=== PATIENT | male | born 1975 | race American Indian/Alaskan Native ===

== ENCOUNTER 2016-06-18 14:17 | Emergency (ER) | payer SELFPAY ==
[2016-06-18 15:09] VITALS: TEMP 99; O2SAT 98; BMI 32.6
[2016-06-18] MEDS ORDERED: Sodium Chloride 0.9% 1,000 ML IV STA (15:13)
--- NOTE | 2016-06-18 15:31 | ED PDOC ---
Arrival/HPI - General Chief Complaint: Abdominal Pain Time Seen by Provider: 06/18/16 14:51 Historian: Patient - History of Present Illness Narrative History of Present Illness (Text): 06/18/16 14:51 A 40 year old male, whose past medical history includes HIV (last CD4 count is 700 and Viral load is undetected), and diverticulitis, presents to the emergency department complaining of left lower quadrant abdominal pain since last night. Patient notes associated no fever, has nausea, and vomiting but denies any urinary changes, back pain or other complaints at this time. PMD: None 06/18/16 20:39 Time/Duration: Other (12-18 hours) Symptom Onset: Sudden Symptom Course: Unchanged Quality: Other Activities at Onset: Rest Context: Home Past Medical History - Provider Review Nursing Documentation Reviewed: Yes - Travel History If Yes, travel location?: [place] - Cardiac Hx Cardiac Disorders: No - Pulmonary Hx Respiratory Disorders: No - Neurological Hx Neurological Disorder: No - HEENT Hx HEENT Disorder: No - Renal Hx Renal Disorder: No - Endocrine/Metabolic Hx Endocrine Disorders: No - Hematological/Oncological Hx Blood Disorders: Yes - Integumentary Hx Dermatological Disorder: No - Musculoskeletal/Rheumatological Hx Musculoskeletal Disorders: No - Gastrointestinal Hx Gastrointestinal Disorders: No - Genitourinary/Gynecological Hx Genitourinary Disorders: No - Psychiatric Hx Psychophysiologic Disorder: No Hx Anxiety: No Hx Substance Use: No Family/Social History - Physician Review Nursing Documentation Reviewed: Yes Family/Social History: Unknown Family HX Smoking Status: Never Smoked Hx Alcohol Use: No Hx Substance Use: No Allergies/Home Meds Allergies/Adverse Reactions: Allergies dicyclomine HCl [From Bentyl] Allergy (Verified 06/18/16 15:06) ANAPHYLAXIS metronidazole [From Flagyl] Allergy (Verified 06/18/16 15:06) ANAPHYLAXIS NSAIDS (Non-Steroidal Anti-Inflamma Allergy (Verified 06/18/16 15:06) ANAPHYLAXIS shellfish derived Allergy (Verified 06/18/16 15:06) ANAPHYLAXIS Sulfa (Sulfonamide Antibiotics) Allergy (Verified 06/18/16 15:06) ANAPHYLAXIS IV contrast Allergy (Uncoded 06/18/16 15:06) ANAPHYLAXIS Home Medications: Home Meds Medication Instructions Recorded Confirmed Dolutegravir Sodium [Tivicay] 0 mg PO DAILY 06/18/16 06/18/16 Emtricitabine/Tenofovir [Truvada 0 mg PO DAILY 06/18/16 06/18/16 100 mg-150 mg Tablet] Review of Systems - Physician Review All systems were reviewed & negative as marked: Yes - Review of Systems Constitutional: Fevers Gastrointestinal: Abdominal Pain, Nausea, Vomiting Genitourinary Male: absent: Dysuria, Frequency, Hematuria, Urinary Output Changes Musculoskeletal: absent: Back Pain Physical Exam Vital Signs Reviewed: Yes Vital Signs Temp Pulse Resp BP Pulse Ox 06/18/16 17:00 97 H 18 138/91 H 98 06/18/16 15:04 99 F 113 H 16 140/100 H 98 Temperature: Afebrile Blood Pressure: Hypertensive Pulse: Tachycardic Respiratory Rate: Normal Appearance: Positive for: Well-Appearing, Non-Toxic, Comfortable Pain Distress: None Mental Status: Positive for: Alert and Oriented X 3 - Systems Exam Cardiovascular: Present: Normal S1, S2, Tachycardic. No: Murmurs Abdomen: Present: Tenderness (to the left lower quadrant), Normal Bowel Sounds. No: Distention, Peritoneal Signs, Rebound, Guarding Medical Decision Making ED Course and Treatment: 06/18/16 14:51 Impression: A 40 year old male with left lower quadrant pain. Differential Diagnosis include but are not limited to: diverticulitis vs uti vs colitis. Plan: -- Abdomen/Pelvis CT -- Labs -- Urinalysis -- Zofran and IV Fluids -- Reassess and disposition Progress Notes: 06/18/16 18:06 noted neutropenia. pt afebrile no source of infection identified. pt wit hh/o of hiv, reports cdr 700+. undetectable viral load. no cardiopulm complaints. abd ct neg for diverticulitis other infection pt states feels well to go home. labs other tuttle unremarkable. advise outpt f/u and return precautions. advised to return with any fever or worsening symptoms. - Lab Interpretations Lab Results: 06/18/16 15:30 06/18/16 16:10 Lab Results 06/18/16 16:10: Sodium 140, Potassium 4.0, Chloride 102, Carbon Dioxide 28, Anion Gap 14, BUN 15, Creatinine 1.0, Est GFR ( Amer) > 60, Est GFR (Non- Af Amer) > 60, Random Glucose 92, Calcium 9.6, Total Bilirubin 0.6, AST 29, ALT 36, Alkaline Phosphatase 50, Total Protein 8.5 H, Albumin 4.3, Globulin 4.3, Albumin/Globulin Ratio 1.0 L, Lipase 117 06/18/16 15:50: Urine Color Yellow, Urine Appearance Sl cloudy, Urine pH 6.0, Ur Specific [place] 1.025, Urine Protein Negative, Urine Glucose (UA) Negative, Urine Ketones Negative, Urine Blood Large H, Urine Nitrate Negative, Urine Bilirubin Negative, Urine Urobilinogen 0.2, Ur Leukocyte Esterase Negative, Urine RBC Tntc, Urine WBC 0 - 2, Ur Epithelial Cells 0 - 2, Urine Bacteria Small 06/18/16 15:30: WBC 2.2 L*, RBC 4.31, Hgb 13.0 L, Hct 36.7 L, MCV 85.2, MCH 30.2 , MCHC 35.4, RDW 14.0, Plt Count 314, MPV 9.0, Neutrophils % (Manual) 40 L, Lymphocytes % (Manual) 36 H, Monocytes % (Manual) 23 H, Eosinophils % (Manual) 1 , PT 10.7, INR 0.99, APTT 23.6 L 06/18/16 14:43: POC Glucose (mg/dL) 101 I have reviewed the lab results: Yes - RAD Interpretation Radiology Orders: 06/18/16 15:14 ABD & PELVIS IV CONTRAST ONLY [CT] Stat - Medication Orders Current Medication Orders: Discontinued Medications Sodium Chloride (Sodium Chloride 0.9%) 1,000 mls @ 1,000 mls/hr IV .Q1H STA Stop: 06/18/16 16:12 Last Admin: 06/18/16 15:51 Dose: 1,000 MLS/HR eMAR Start Stop Document 06/18/16 15:51 (Rec: 06/18/16 15:51 [facility] [id number]) Intravenous Solution Start Date 06/18/16 Start Time 15:51 End Date 06/18/16 End time 18:50 Total Infusion Time 179 Iohexol (Omnipaque 350 150 Ml) Confirm Administered Dose 150 ml .ROUTE .STK-MED ONE Stop: 06/18/16 15:23 Morphine Sulfate (Morphine) 4 mg IVP STAT STA Stop: 06/18/16 16:13 Last Admin: 06/18/16 16:22 Dose: 4 MG MAR Pain Assessment Document 06/18/16 16:22 (Rec: 06/18/16 16:22 [id number]) Pain Reassessment Is this a pain reassessment? Yes Sleep Is patient sleeping during reassessment? No Presence of Pain Presence of Pain Yes IVP Administration Document 06/18/16 16:22 MD (Rec: 06/18/16 16:22 [id number]) Charges for Administration # of IVP Administrations 1 Ondansetron HCl (Zofran Inj) 4 mg IVP STAT STA Stop: 06/18/16 15:14 Last Admin: 06/18/16 15:51 Dose: 4 MG IVP Administration Document 06/18/16 15:51 MD (Rec: 06/18/16 15:52 [id number]) Charges for Administration # of IVP Administrations 1 - Scribe Statement The provider has reviewed the documentation as recorded by the Scribe Regine Coyne Provider Scribe Attestation: All medical record entries made by the Scribe were at my direction and personally dictated by me. I have reviewed the chart and agree that the record accurately reflects my personal performance of the history, physical exam, medical decision making, and the department course for this patient. I have also personally directed, reviewed, and agree with the discharge instructions and disposition. Disposition/Present on Arrival - Present on Arrival Any Indicators Present on Arrival: No History of DVT/PE: No History of Uncontrolled Diabetes: No Urinary Catheter: No History of Decub. Ulcer: No History Surgical Site Infection Following: None - Disposition Have Diagnosis and Disposition been Completed?: Yes Diagnosis: Abdominal pain Disposition: HOME/ ROUTINE Disposition Time: 18:07 Condition: STABLE Discharge Instructions (ExitCare): Acute Abdominal Pain (ED) Additional Instructions: please follow up with your doctor/clinic and specialist. return to er with worsening symptoms or concerns. Referrals: [facility] [Outside] - Follow up with primary [facility] [place] [Outside] - Follow up with primary PCP,NO [Primary Care Provider] - Follow up with primary Janes Armijo MD [Staff Provider] - Follow up with primary
[2016-06-18 15:56] LABS: INR 0.99 (0.93-1.08); PARTIAL THROMBOPLASTIN TIME 23.6 Seconds (23.7-30.8)
[2016-06-18 16:06] LABS: URINE BILIRUBIN NEGATIVE (NEGATIVE); URINE BLOOD LARGE (NEGATIVE); URINE GLUCOSE (UA) NEGATIVE (NEGATIVE); URINE KETONE NEGATIVE (NEGATIVE); URINE LEUKOCYTE ESTERASE NEGATIVE Leu/uL (NEGATIVE); URINE PROTEIN NEGATIVE mg/dL (<30 mg/dL); URINE UROBILINOGEN 0.2 E.U./dL (<1 E.U./dL)
[2016-06-18] MEDS ORDERED: Morphine 4 mg/ml ISec IVP STA (16:12)
[2016-06-18 16:18] LABS: URINE APPEARANCE SL CLOUDY (CLEAR); URINE COLOR YELLOW (YELLOW)
[2016-06-18 16:29] LABS: URINE BACTERIA SMALL (NEG); URINE EPITHELIAL CELLS 0 - 2 /hpf (0-5); URINE RBC TNTC /hpf (0-2); URINE WBC 0 - 2 /hpf (0-6)
[2016-06-18 16:32] LABS: ALKALINE PHOSPHATASE 50 U/L (38-133); ALT/SGPT 36 U/L (7-56); AST/SGOT 29 U/L (15-59); BILIRUBIN,TOTAL 0.6 mg/dL (0.2-1.3); BLOOD UREA NITROGEN 15 mg/dL (7-21); CALCIUM 9.6 mg/dL (8.4-10.5); CARBON DIOXIDE 28 mmol/L (21-33); CHLORIDE 102 mmol/L (98-107); GFR AFRICAN-AMERICAN > 60; GLUCOSE,RANDOM 92 mg/dL (70-110); LIPASE 117 U/L (23-300); SODIUM 140 mmol/L (132-148); TOTAL PROTEIN 8.5 g/dL (5.8-8.3)
[2016-06-18 16:34] LABS: HEMATOCRIT 36.7 % (42.0-52.0); MEAN CELL VOLUME 85.2 fL (80.0-105.0); MEAN CORPUSCULAR HEMOGLOBIN 30.2 pg (25.0-35.0); MEAN CORPUSCULAR HGB CONC 35.4 g/dl (31.0-37.0); PLATELET COUNT 314 10^3/uL (120.0-450.0)
[2016-06-18 16:49] LABS: WHITE BLOOD COUNT 2.2 10^3/ul (4.5-11.0)
[2016-06-18 16:50] LABS: ADD MANUAL DIFF? YES
[2016-06-18 17:16] VITALS: BP 138/91; PULSE 97; RESP 18
[2016-06-18 17:52] LABS: EOSINOPHIL 1 % (0.0-3.0); NEUTROPHIL 40 % (50.0-70.0)
--- NOTE | 2016-06-18 17:56 | CT ---
PROCEDURE: CT Abdomen and Pelvis with contrast HISTORY: llq pain COMPARISON: None. TECHNIQUE: Contrast dose: 100 cc of Omnipaque Radiation dose: Total exam DLP = 1249 mGy-cm. This CT exam was performed using one or more of the following dose reduction techniques: Automated exposure control, adjustment of the mA and/or kV according to patient size, and/or use of iterative reconstruction technique. FINDINGS: LOWER THORAX: Unremarkable. LIVER: Unremarkable. No gross lesion or ductal dilatation. GALLBLADDER AND BILE DUCTS: Unremarkable. PANCREAS: Unremarkable. No gross lesion or ductal dilatation. SPLEEN: Unremarkable. ADRENALS: Unremarkable. No mass. KIDNEYS AND URETERS: 12 mm right lower pole renal cyst.. No hydronephrosis. No solid mass. VASCULATURE: Unremarkable. No aortic aneurysm. BOWEL: [place] diverticulosis. No obstruction. No gross mural thickening. APPENDIX: Normal appendix. PERITONEUM: Unremarkable. No free fluid. No free air. LYMPH NODES: Unremarkable. No enlarged lymph nodes. BLADDER: Unremarkable. REPRODUCTIVE: Unremarkable. BONES: No acute fracture. OTHER FINDINGS: None. IMPRESSION: Colonic diverticulosis without evidence of diverticulitis.
== END 2016-06-18 18:51 | disposition home or self-care (01) ==
LOC: ED 14:17
DX: R10.9 Unspecified abdominal pain (principal)
CPT/HCPCS: 74177; 80053; 81001; 82948; 83690; 85025; 85610; 85730; 96361; 96374; 96375; 99284; J2270; J2405; J7040; Q9967